=== PATIENT | female | born 1965 | race Caucasian/White ===

== ENCOUNTER 2019-10-01 17:01 | Inpatient (IN) ==
[2019-10-01 17:53] LABS: BUN/Creatinine Ratio 14 (6-26); Blood Urea Nitrogen 12 mg/dL (6-20); Calcium 9.5 mg/dL (8.6-10.3); Carbon Dioxide 22 mEq/L (23-29); Chloride 104 mEq/L (98-107); Glucose 96 mg/dL (70-105); Osmolality,Calculated 282 (280-300); Potassium 4.3 mEq/L (3.5-5.1); Sodium 136 mEq/L (136-145); eGFR For African Americans > 60 (> 60); eGFR For Non-African Americans > 60 (> 60)
[2019-10-01 17:54] LABS: Troponin I < 0.03 ng/mL (< 0.04)
[2019-10-01 18:02] LABS: Hematocrit 47.8 % (35.3-44.9); Hemoglobin 15.6 g/dL (11.5-15.4); Mean Corpuscular HGB Conc 32.6 g/dL (31.6-35.5); Mean Corpuscular Hemoglobin 29.8 pg (28.0-33.3); Mean Corpuscular Volume 91.2 fL (83.0-100.0); Platelet Count 347 K/mcL (140-400); Red Blood Count 5.24 M/mcL (3.82-4.97); Red Cell Distribution Width 12.7 % (11.5-14.5); White Blood Count 9.7 K/mcL (4.3-11.1)
[2019-10-01] MEDS ORDERED: *HR* Labetalol 20 MG/4 ML SYRINGE IVP ONE (18:14)
[2019-10-01] MEDS ORDERED: 0.9 % Sodium Chloride 1,000 ML IVC SCH (19:45)
[2019-10-01] MEDS ORDERED: Nicotine 14 MG PATCH.TD24 TD PRN (20:17)
[2019-10-01] MEDS ORDERED: Perflutren Lipid Microsphere 1.3 ML in 0.9 % Sodium Chloride 8.7 ML IVP ONE (20:31)
[2019-10-01 21:25] LABS: Amphetamine Screen,Urine Negative ng/mL (Cutoff=1000); Barbiturate Screen,Urine Negative ng/mL (Cutoff=200); Benzodiazepines Screen,Urine Negative ng/mL (Cutoff=200); Cannabinoid Screen,Urine Positive ng/mL (Cutoff = 50); Cocaine Screen,Urine Negative ng/mL (Cutoff= 300); Opiate Screen,Urine Negative ng/mL (Cutoff=300); Phencyclidine Screen,Urine Negative ng/mL (Cutoff=25)
[2019-10-01] MEDS ORDERED: Isovue-370 500 ML BOTTLE IVP ONE (21:41)
[2019-10-01] MEDS: Aspirin Enteric Coated 325 MG Tablet PO SCH (22:07)
[2019-10-02 01:20] LABS: Hematocrit 41.7 % (35.3-44.9); Mean Corpuscular HGB Conc 33.6 g/dL (31.6-35.5); Mean Corpuscular Volume 89.3 fL (83.0-100.0); Mean Platelet Volume 9.2 fL (9.4-12.4); Platelet Count 321 K/mcL (140-400); Red Blood Count 4.67 M/mcL (3.82-4.97); Red Cell Distribution Width 12.6 % (11.5-14.5); White Blood Count 8.6 K/mcL (4.3-11.1)
[2019-10-02 01:23] LABS: INR 1.1; Prothrombin Time 12.4 Seconds (9.4-12.1)
[2019-10-02 01:26] LABS: Activated Partial Thrombo Time 32.7 Seconds (26.0-36.0)
[2019-10-02 01:44] LABS: Alanine Aminotransferase 26 Units/L (7-52); Albumin 3.7 g/dL (3.5-5.7); Albumin/Globulin Ratio 1.2 (1.1-2.2); Alkaline Phosphatase 101 Units/L (34-104); Aspartate Amino Transferase 21 Units/L (13-39); BUN/Creatinine Ratio 16 (6-26); Bilirubin,Total 1.1 mg/dL (0.3-1.0); Blood Urea Nitrogen 12 mg/dL (6-20); Carbon Dioxide 22 mEq/L (23-29); Chloride 104 mEq/L (98-107); Chol/HDL Ratio 4.6 (0-4.9); Cholesterol 207 mg/dL (< 200); Globulin 3.1 g/dL (2.4-3.5); Glucose 137 mg/dL (70-105); HDL Cholesterol 45 mg/dL (40-59); LDL Cholesterol,Calculated 136 mg/dL (0-99); Osmolality,Calculated 284 (280-300); Potassium 3.6 mEq/L (3.5-5.1); Sodium 136 mEq/L (136-145); Total Protein 6.8 g/dL (6.4-8.9); Triglycerides 129 mg/dL (< 150); Troponin I 0.07 ng/mL (< 0.04); eGFR For African Americans > 60 (> 60); eGFR For Non-African Americans > 60 (> 60)
[2019-10-02] MEDS ORDERED: Acetaminophen 325 MG TABLET PO PRN (02:27)
[2019-10-02] MEDS: Aspirin Enteric Coated 325 MG Tablet PO SCH (08:12)
[2019-10-02 08:37] LABS: Estimated Average Glucose 117 mg/dl
[2019-10-02 11:30] LABS: Bilirubin,Urine Negative (Negative); Blood,Urine Negative (Negative); Clarity,Urine Clear (Clear); Color,Urine Colorless (Yellow); Glucose,Urine (UA) Normal (Normal); Ketones,Urine Negative (Negative); Leukocyte Esterase,Urine Negative (Negative); Nitrite,Urine Negative (Negative); PH,Urine 6.5 pH Units (5.0-8.0); Protein,Urine Negative (Neg-Trace); Specific Gravity,Urine 1.012 (1.010-1.025); Urobilinogen,Urine Normal (Normal)
[2019-10-02] MEDS ORDERED: amLODIPine 5 MG TABLET PO STA (11:46)
[2019-10-02] MEDS ORDERED: Nicotine 21 MG PATCH.TD24 TD PRN (12:50)
[2019-10-02] MEDS: *HR* Heparin 5,000 UNIT/ML VIAL SQ SCH ×2 (15:04→21:00)
[2019-10-03 04:20] LABS: BUN/Creatinine Ratio 13 (6-26); Blood Urea Nitrogen 11 mg/dL (6-20); Calcium 9.3 mg/dL (8.6-10.3); Carbon Dioxide 24 mEq/L (23-29); Chloride 107 mEq/L (98-107); Glucose 93 mg/dL (70-105); Magnesium 2.2 mg/dL (1.6-2.6); Osmolality,Calculated 287 (280-300); Phosphorous 4.1 mg/dL (2.7-4.5); Potassium 4.6 mEq/L (3.5-5.1); Sodium 139 mEq/L (136-145); eGFR For African Americans > 60 (> 60); eGFR For Non-African Americans > 60 (> 60)
[2019-10-03] MEDS: *HR* Heparin 5,000 UNIT/ML VIAL SQ SCH ×2 (05:10→14:43)
[2019-10-03] MEDS: Aspirin Enteric Coated 325 MG Tablet PO SCH (08:40)
[2019-10-03] MEDS ORDERED: amLODIPine 5 MG TABLET PO SCH (09:00)
[2019-10-03 11:22] VITALS: BP 158/81
== END 2019-10-03 15:55 | disposition home or self-care (01) | DRG 64 ==
LOC: 3BNU 17:01 → EMEROOARM 17:01 → SUATTDRO 18:31 → 3BNU 19:42
PROVIDERS: ADMIT Pharmacist; ATTEND Internal Medicine

== ENCOUNTER 2019-10-04 22:43 | Observation (INO) ==
[2019-10-04] MEDS ORDERED: Isovue-370 500 ML BOTTLE IVP ONE (23:36)
[2019-10-04] MEDS ORDERED: *HR* Labetalol 20 MG/4 ML SYRINGE IVP ONE (23:37)
[2019-10-05 00:26] LABS: Bilirubin,Urine Negative (Negative); Blood,Urine Trace-lysed (Negative); Clarity,Urine Clear (Clear); Color,Urine Yellow (Yellow); Glucose,Urine (UA) Normal (Normal); Ketones,Urine Negative (Negative); Leukocyte Esterase,Urine Negative (Negative); Nitrite,Urine Negative (Negative); Protein,Urine 100 mg/dL (Neg-Trace); Specific Gravity,Urine >= 1.030 (1.010-1.025); Urobilinogen,Urine Normal (Normal)
[2019-10-05 00:27] LABS: Basophils # 0.1 K/mcL (0.0-0.2); Eosinophils # 0.2 K/mcL (0.0-0.6); Eosinophils % 2.1 %; Hematocrit 45.2 % (35.3-44.9); Hemoglobin 15.2 g/dL (11.5-15.4); Immature Granulocytes % 0.2 % (0-4); Lymphocytes % 30.2 %; Mean Corpuscular HGB Conc 33.6 g/dL (31.6-35.5); Mean Corpuscular Hemoglobin 30.7 pg (28.0-33.3); Mean Corpuscular Volume 91.3 fL (83.0-100.0); Mean Platelet Volume 9.3 fL (9.4-12.4); Monocytes # 0.9 K/mcL (0.0-1.3); Monocytes % 8.8 %; Neutrophils # 5.8 K/mcL (1.6-8.9); Platelet Count 318 K/mcL (140-400); Red Blood Count 4.95 M/mcL (3.82-4.97); Red Cell Distribution Width 12.6 % (11.5-14.5); Segmented Neutrophils % 57.7 %
[2019-10-05 00:33] LABS: Prothrombin Time 11.9 Seconds (9.4-12.1)
[2019-10-05 00:33] LABS: Bacteria,Urine Few per hpf (None-Few); Hyaline Casts,Urine None Seen per lpf (None Seen); RBC,Urine 0-3 per hpf (0-3); Squamous Epithelial Cell,Urine Moderate per hpf (None-Few); WBC,Urine 0-3 per hpf (0-3)
[2019-10-05 00:36] LABS: Activated Partial Thrombo Time 33.9 Seconds (26.0-36.0)
[2019-10-05] MEDS ORDERED: 0.9 % Sodium Chloride 1,000 ML IVC ONE (00:41)
[2019-10-05 00:44] LABS: Alanine Aminotransferase 30 Units/L (7-52); Albumin 4.3 g/dL (3.5-5.7); Albumin/Globulin Ratio 1.2 (1.1-2.2); Alkaline Phosphatase 124 Units/L (34-104); Aspartate Amino Transferase 24 Units/L (13-39); BUN/Creatinine Ratio 17 (6-26); Bilirubin,Direct 0.2 mg/dL (0.0-0.2); Bilirubin,Indirect 0.8 mg/dL (0.0-1.0); Blood Urea Nitrogen 19 mg/dL (6-20); Calcium 9.8 mg/dL (8.6-10.3); Carbon Dioxide 24 mEq/L (23-29); Chloride 103 mEq/L (98-107); Globulin 3.7 g/dL (2.4-3.5); Glucose 95 mg/dL (70-105); Osmolality,Calculated 284 (280-300); Potassium 4.2 mEq/L (3.5-5.1); Sodium 136 mEq/L (136-145); eGFR For African Americans > 60 (> 60); eGFR For Non-African Americans 52 (> 60)
[2019-10-05 00:46] LABS: Troponin I < 0.03 ng/mL (< 0.04)
[2019-10-05 01:33] LABS: Thyroid Stimulating Hormone 5.652 mcIU/mL (0.340-5.600)
[2019-10-05] MEDS ORDERED: *HR* LORazepam 2 MG/ML VIAL IVP ONE (04:38)
[2019-10-05] MEDS: Aspirin Enteric Coated 325 MG Tablet PO SCH (07:58)
[2019-10-05] MEDS: amLODIPine 5 MG TABLET PO SCH (07:59)
[2019-10-05] MEDS ORDERED: hydrOXYzine pamoate 25 MG CAPSULE PO PRN (13:02)
[2019-10-05] MEDS: *HR* Heparin 5,000 UNIT/ML VIAL SQ SCH ×2 (13:57→21:16)
[2019-10-05 14:10] LABS: Triiodothyronine (T3) Total 1.11 ng/mL (0.87-1.78)
[2019-10-05] MEDS ORDERED: *HR* Labetalol 20 MG/4 ML SYRINGE IVP ONE (23:23)
[2019-10-06] MEDS: *HR* Heparin 5,000 UNIT/ML VIAL SQ SCH (06:07)
[2019-10-06 06:50] VITALS: BP 116/77
[2019-10-06] MEDS: Aspirin Enteric Coated 325 MG Tablet PO SCH (09:03)
[2019-10-06] MEDS: amLODIPine 5 MG TABLET PO SCH (09:03)
== END 2019-10-06 13:05 | disposition home or self-care (01) ==
LOC: 3BNU 22:43 → EMEROOARM 22:43 → SUATTDRO 10-05 02:39 → 3BNU 10-05 03:29
PROVIDERS: ADMIT Student in an Organized Health Care Education/Training Program; ATTEND Internal Medicine

== ENCOUNTER 2019-10-09 09:59 | Inpatient (IN) ==
[~2019-10-09 09:59] MED LIST: ceFAZolin 1,000 MG, Sodium Chloride IRRigation 1,000 ML IR ONE
[2019-10-09] MEDS ORDERED: *HR* Heparin 5,000 UNIT/ML VIAL ONE ×2 (10:33→14:14)
[2019-10-09] MEDS ORDERED: *HR* Midazolam HCl 2 MG/2 ML VIAL ONE (10:33)
[2019-10-09] MEDS ORDERED: *HR* FentaNYL (PF) 100 MCG/2 ML VIAL ONE ×2 (10:33→11:40)
[2019-10-09] MEDS ORDERED: *HR* Phenylephrine 10 MG/ML VIAL ONE (10:33)
[2019-10-09] MEDS ORDERED: Dexamethasone 4 MG/ML VIAL ONE (10:33)
[2019-10-09] MEDS ORDERED: Lidocaine -MPF 2% 2 ML VIAL ONE ×2 (10:33→10:54)
[2019-10-09] MEDS ORDERED: EPHEDrine 50 MG/ML VIAL ONE (10:33)
[2019-10-09] MEDS ORDERED: *HR* Propofol 200 MG/20 ML VIAL IVP ONE (10:33)
[2019-10-09] MEDS ORDERED: *HR* Remifentanil 1 MG VIAL IVP ONE ×2 (10:33→13:33)
[2019-10-09] MEDS ORDERED: Ondansetron 4 MG/2 ML VIAL ONE (10:33)
[2019-10-09] MEDS ORDERED: Lidocaine -MPF 4% 5 ML AMPUL ONE (10:33)
[2019-10-09] MEDS ORDERED: *HR* HYDROmorphone PF 0.5 MG/0.5 ML SYRINGE IVP PRN (10:34)
[2019-10-09] MEDS ORDERED: Ondansetron 4 MG/2 ML VIAL IVP ONE (10:34)
[2019-10-09] MEDS ORDERED: *HR* OxyCODONE Immed Rel 5 MG TABLET PO PRN (10:34)
[2019-10-09] MEDS ORDERED: CeFAZolin Syr 2,000MG/20 ML 2,000 MG/20 ML SYRINGE IVPB ONE (10:36)
[2019-10-09] MEDS ORDERED: Heparin 1,000 UNITS/500 mL 500 ML ONE (10:37)
[2019-10-09] MEDS ORDERED: *HR* Vasopressin 20 UNIT/ML VIAL ONE (10:39)
[2019-10-09] MEDS ORDERED: NiCARdipine 2.5 MG/10 ML Syringe IVPB ONE (10:39)
[2019-10-09] MEDS: Ringers Solution, Lactated 1,000 ML IVC SCH ×2 (11:18→15:40)
[2019-10-09] MEDS ORDERED: Protamine Sulfate 50 MG/5 ML VIAL IVP ONE (11:32)
[2019-10-09] MEDS ORDERED: Heparin 1,000 UNITS/500 mL 0 ML ONE (11:32)
[2019-10-09] MEDS ORDERED: Lidocaine 1% 20 ML MDV ONE (11:32)
[2019-10-09] MEDS ORDERED: *HR* Labetalol 20 MG/4 ML SYRINGE IVP ONE (14:33)
[2019-10-09] MEDS ORDERED: Naloxone 0.4 MG/ML INJ IVP PRN (16:41)
[2019-10-09] MEDS ORDERED: Acetaminophen 325 MG TABLET PO PRN (16:41)
[2019-10-09] MEDS ORDERED: *HR* Labetalol 20 MG/4 ML SYRINGE IVP PRN (16:41)
[2019-10-09] MEDS ORDERED: Ondansetron 4 MG/2 ML VIAL IVP PRN (16:41)
[2019-10-09] MEDS: *HR* HYDROcodone/Acet 5/325 mg TABLET PO PRN (19:35)
[2019-10-09] MEDS: CeFAZolin 2 GM/120 ML BAG IVPB SCH (19:36)
[2019-10-09] MEDS ORDERED: amLODIPine 5 MG TABLET PO SCH (20:00)
[2019-10-09] MEDS: 0.9 % Sodium Chloride 1,000 ML IVC SCH (20:57)
[2019-10-10] MEDS: *HR* HYDROcodone/Acet 5/325 mg TABLET PO PRN ×2 (02:13→12:37)
[2019-10-10] MEDS: CeFAZolin 2 GM/120 ML BAG IVPB SCH ×2 (03:00→11:00)
[2019-10-10 03:21] LABS: Basophils % 0.2 %; Hemoglobin 11.6 g/dL (11.5-15.4); Immature Granulocytes % 0.4 % (0-4); Lymphocytes # 1.2 K/mcL (0.6-4.6); Lymphocytes % 12.9 %; Mean Corpuscular HGB Conc 32.2 g/dL (31.6-35.5); Mean Corpuscular Hemoglobin 29.6 pg (28.0-33.3); Mean Corpuscular Volume 91.8 fL (83.0-100.0); Mean Platelet Volume 9.5 fL (9.4-12.4); Monocytes # 0.4 K/mcL (0.0-1.3); Monocytes % 4.5 %; Neutrophils # 7.6 K/mcL (1.6-8.9); Platelet Count 281 K/mcL (140-400); Red Blood Count 3.92 M/mcL (3.82-4.97); Red Cell Distribution Width 12.3 % (11.5-14.5); White Blood Count 9.2 K/mcL (4.3-11.1)
[2019-10-10 03:40] LABS: BUN/Creatinine Ratio 21 (6-26); Blood Urea Nitrogen 13 mg/dL (6-20); Calcium 8.5 mg/dL (8.6-10.3); Carbon Dioxide 24 mEq/L (23-29); Chloride 107 mEq/L (98-107); Glucose 128 mg/dL (70-105); Osmolality,Calculated 284 (280-300); Potassium 4.2 mEq/L (3.5-5.1); Sodium 136 mEq/L (136-145); eGFR For African Americans > 60 (> 60); eGFR For Non-African Americans > 60 (> 60)
[2019-10-10] MEDS: 0.9 % Sodium Chloride 1,000 ML IVC SCH (07:00)
[2019-10-10] MEDS ORDERED: Aspirin Enteric Coated 325 MG Tablet PO SCH (09:00)
[2019-10-10 11:05] VITALS: BP 108/71
== END 2019-10-10 14:26 | disposition home or self-care (01) | DRG 24 ==
LOC: SAMDAY 09:59 → 2NNU 16:40
PROVIDERS: ADMIT Surgery Vascular Surgery; ATTEND Surgery Vascular Surgery